=== PATIENT | female | born 1980 | race African-American/Black ===

== ENCOUNTER 2025-03-01 15:15 | Emergency (ER) | payer OTHER ==
[~2025-03-01] VITALS: Ht 162.6 cm; Wt 77.6 kg
[2025-03-01 15:22] VITALS: BP 136/88
[2025-03-01] MEDS ORDERED: AMOX-430 PO (15:39)
[2025-03-01] MEDS ORDERED: HYDR-3972 PO (15:39)
[2025-03-01 15:50] VITALS: BP 136/88; TEMP 97.7; O2SAT 97
== END 2025-03-01 15:51 | disposition home or self-care (01) ==
LOC: ER 15:15
DX: K04.7 Periapical abscess without sinus (principal); K08.89 Other specified disorders of teeth and supporting structures
CPT/HCPCS: A4606; A4663